=== PATIENT | female | born 1975 | race Caucasian/White ===

== ENCOUNTER → 2016-08-29 | Outpatient (CLI) | payer OTHER ==
--- NOTE | 2016-08-29 07:39 | MR ---
EXAMINATION TYPE: MR brain wo con DATE OF EXAM: 08/29/2016 6:30 AM COMPARISON: NONE HISTORY: 41-year-old female with dizziness TECHNIQUE: Multiplanar, multisequence images of the brain and brainstem were acquired without IV con trast. Diffusion weighted imaging is performed. FINDINGS: No evidence for acute infarction, hemorrhage, mass, mass effect, midline shift, herniation, effacemen t of basal cisterns, or extra-axial fluid collection. The ventricles and sulci are age-appropriate. Major intracranial flow voids are intact. T2/FLAIR weighted sequences show a solitary bright signal focus within the right frontal subcortical white matter, axial image 25. There is a 5 mm round T2 hyperintense lesion in the left paramedian pituitary gland. Otherwise, midli ne structures demonstrate normal morphology. There is minimal 2 mm of benign cerebellar tonsillar ec topia. Otherwise, the craniocervical junction is normal. Moderate mucosal thickening left maxillary sinus and mild within the ethmoid air cells. Globes are in tact. IMPRESSION: 1. No acute intracranial abnormality seen. 2. A solitary nonspecific 2 mm bright white matter focus in the right frontal lobe. Findings may refl ect very early changes of chronic small vessel ischemic disease. 3. Findings suggest a small 5 mm cyst of the pituitary gland. Correlate with clinical symptoms and la boratory assessment to exclude the less likely possibility of a tiny microadenoma. 4. Mild to moderat e chronic ethmoid and left maxillary sinus disease.
== END | disposition home or self-care (01) ==
LOC: RADMRIMAIN 05:58
PROVIDERS: ATTEND Family Medicine
DX: R90.89 Other abnormal findings on diagnostic imaging of central nervous system (principal)
CPT/HCPCS: 70551

== ENCOUNTER 2016-09-10 10:00 | Emergency (ER) | payer OTHER ==
[2016-09-10] MEDS ORDERED: MAG HYDROX/AL HYDROX/SIMETH 30 ML, HYOSCYAMINE ELIXIR 10 ML, CIMETIDINE HCL 300 MG PO STA ×3 (10:29)
--- NOTE | 2016-09-10 10:35 | ED ---
General Adult HPI - General Chief complaint: Abdominal Pain Stated complaint: Stomach pain Time Seen by Provider: 09/10/16 10:00 Source: patient, RN notes reviewed Mode of arrival: ambulatory Limitations: no limitations - History of Present Illness Initial comments: This is a 41-year-old female who presents to the emergency department complaining of severe heartburn. Patient states she's had heartburn for a week and a half. Patient states she has had it before but normally goes away and the day or 2. Patient states his been a week and a half of constant heartburn pain. Patient states she does see toms is a Tums appeared to help it but does not completely take it away. Patient states she has some cramping in her upper abdomen but there has been no nausea vomiting. Patient denies any diarrhea. Patient denies any recent fever or chills. Patient denies any difficulty breathing shortness of breath. Patient denies any diaphoresis. Patient denies any lightheadedness dizziness or near syncopal episode. Patient denies any numbness or weakness. Denies dysuria hematuria or urinary frequency. - Related Data Home Medications Medication Instructions Recorded Confirmed Levothyroxine Sodium [Synthroid] 75 mcg PO DAILY 09/10/16 09/10/16 Multivitamins, Thera [Multivitamin] 1 tab PO DAILY 09/10/16 09/10/16 Allergies Allergy/AdvReac Type Severity Reaction Status Date / Time ciprofloxacin [From Cipro] Allergy Unknown Verified 09/10/16 10:22 ciprofloxacin HCl Allergy Unknown Verified 09/10/16 10:22 [From Cipro] Review of Systems ROS Statement: Those systems with pertinent positive or pertinent negative responses have been documented in the HPI. ROS Other: All systems not noted in ROS Statement are negative. Past Medical History Past Medical History: No Reported History History of Any Multi-Drug Resistant Organisms: None Reported Additional Past Surgical History / Comment(s): implants Past Psychological History: No Psychological Hx Reported Smoking Status: Never smoker Past Alcohol Use History: None Reported Past Drug Use History: None Reported General Exam - General Exam Comments Initial Comments: GENERAL: Patient is well-developed and well-nourished. Patient is nontoxic and well- hydrated and is in mild distress. ENT: Neck is soft and supple. No significant lymphadenopathy is noted. Oropharynx is clear. Moist mucous membranes. Neck has full range of motion without eliciting any pain. EYES: The sclera were anicteric and conjunctiva were pink and moist. Extraocular movements were intact and pupils were equal round and reactive to light. Eyelids were unremarkable. PULMONARY: Unlabored respirations. Good breath sounds bilaterally. No audible rales rhonchi or wheezing was noted. CARDIOVASCULAR: There is a regular rate and rhythm without any murmurs gallops or rubs. ABDOMEN: Soft and nontender with normal bowel sounds. No palpable organomegaly was noted. There is no palpable pulsatile mass. SKIN: Skin is clear with no lesions or rashes and otherwise unremarkable. NEUROLOGIC: Patient is alert and oriented x3. Cranial nerves II through XII are grossly intact. Motor and sensory are also intact. Normal speech, volume and content. Symmetrical smile. MUSCULOSKELETAL: Normal extremities with adequate strength and full range of motion. LYMPHATICS: No significant lymphadenopathy is noted PSYCHIATRIC: Normal psychiatric evaluation. Limitations: no limitations Course Vital Signs 09/10/16 10:07 Temperature 97.3 F L Pulse Rate 60 Respiratory 17 Rate Blood Pressure 131/58 O2 Sat by Pulse 99 Oximetry Medical Decision Making - Medical Decision Making EKG shows sinus rhythm with frequent PVCs in a bigeminy pattern at 64 bpm MO interval 136 QRS is 86 QT interval 446 QTC is 460. Patient's old chart states that she has been in trigeminy and bigeminy before and has had stress tests that were normal. Patient got a GI cocktail and she stated that it completely removed her discomfort. - Lab Data Result diagrams: 09/10/16 10:25 09/10/16 10:25 Lab Results 09/10/16 09/10/16 09/10/16 Range/Units 10:25 10:25 10:25 WBC 6.1 (3.8-10.6) k/uL RBC 4.70 (3.80-5.40) m/uL Hgb 13.6 (11.4-16.0) gm/dL Hct 42.3 (34.0-46.0) % MCV 89.8 (80.0-100.0) fL MCH 28.9 (25.0-35.0) pg MCHC 32.2 (31.0-37.0) g/dL RDW 12.3 (11.5-15.5) % Plt Count 311 (150-450) k/uL Neutrophils % 59 % Lymphocytes % 28 % Monocytes % 7 % Eosinophils % 4 % Basophils % 0 % Neutrophils # 3.6 (1.3-7.7) k/uL Lymphocytes # 1.7 (1.0-4.8) k/uL Monocytes # 0.4 (0-1.0) k/uL Eosinophils # 0.2 (0-0.7) k/uL Basophils # 0.0 (0-0.2) k/uL Sodium 140 (137-145) mmol/L Potassium 4.1 (3.5-5.1) mmol/L Chloride 107 (98-107) mmol/L Carbon Dioxide 24 (22-30) mmol/L Anion Gap 9 mmol/L BUN 10 (7-17) mg/dL Creatinine 0.80 (0.52-1.04) mg/dL Est GFR (MDRD) Af Amer >60 (>60 ml/min/1.73 sqM) Est GFR (MDRD) Non-Af >60 (>60 ml/min/1.73 sqM) Glucose 98 (74-99) mg/dL Calcium 9.5 (8.4-10.2) mg/dL Total Bilirubin 1.4 H (0.2-1.3) mg/dL AST 24 (14-36) U/L ALT 34 (9-52) U/L Alkaline Phosphatase 52 (38-126) U/L Total Creatine Kinase 93 (30-135) U/L CK-MB (CK-2) 0.8 (0.0-2.4) ng/mL CK-MB (CK-2) Rel Index 0.9 Troponin I <0.012 (0.000-0.034) ng/mL Total Protein 7.4 (6.3-8.2) g/dL Albumin 4.2 (3.5-5.0) g/dL Amylase 35 (30-110) U/L Lipase 30 (23-300) U/L Disposition Clinical Impression: Gastroesophageal reflux Disposition: HOME SELF-CARE Condition: Good Instructions: Gastroesophageal Reflux Disease (ED) Additional Instructions: Patient should be taking Prilosec [id number] once a day. Patient should take Maalox or ULCER for acute exacerbations. Referrals: Edmund Seo III, MD [Primary Care Provider] - 1-2 days Time of Disposition: 11:32
[2016-09-10 10:44] LABS: Basophils % (A) 0 %; CH 29.5; Eosinophils # (A) 0.2 k/uL (0-0.7); Eosinophils % (A) 4 %; HCT 42.3 % (34.0-46.0); HDW 2.09; HGB 13.6 gm/dL (11.4-16.0); Luc # (Auto) 0.15; Luc % (Auto) 2; Lymphocytes # (A) 1.7 k/uL (1.0-4.8); Lymphocytes % (A) 28 %; MCH 28.9 pg (25.0-35.0); MCHC 32.2 g/dL (31.0-37.0); MCV 89.8 fL (80.0-100.0); Mean Platelet Volume 6.7; Monocytes # (A) 0.4 k/uL (0-1.0); Monocytes % (A) 7 %; Neutrophils # (A) 3.6 k/uL (1.3-7.7); Neutrophils % (A) 59 %; RDW 12.3 % (11.5-15.5); WBC 6.1 k/uL (3.8-10.6); WBC (Perox) 6.17
[2016-09-10 11:00] LABS: ALT 34 U/L (9-52); AST 24 U/L (14-36); Alkaline Phosphatase 52 U/L (38-126); Amylase 35 U/L (30-110); Anion Gap 9 mmol/L; Blood Urea Nitrogen 10 mg/dL (7-17); Calcium 9.5 mg/dL (8.4-10.2); Carbon Dioxide 24 mmol/L (22-30); Chloride 107 mmol/L (98-107); Glucose 98 mg/dL (74-99); Non-African American GFR(MDRD) >60 (>60 ml/min/1.73 sqM); Potassium 4.1 mmol/L (3.5-5.1); Sodium 140 mmol/L (137-145); Total Bilirubin 1.4 mg/dL (0.2-1.3); Total Protein 7.4 g/dL (6.3-8.2)
[2016-09-10 11:04] LABS: Creatine Kinase 93 U/L (30-135)
[2016-09-10 11:17] LABS: Creatine Kinase MB 0.8 ng/mL (0.0-2.4); Troponin I <0.012 ng/mL (0.000-0.034)
[2016-09-10 12:01] VITALS: BP 120/76; PULSE 62; RESP 20; TEMP 98.8
== END 2016-09-10 11:59 | disposition home or self-care (01) ==
LOC: EC 10:00
DX: K21.9 Gastro-esophageal reflux disease without esophagitis (principal); Z79.899 Other long term (current) drug therapy; Z88.1 Allergy status to other antibiotic agents
CPT/HCPCS: 36415; 80053; 82150; 82550; 82553; 83690; 84484; 85025; 93005; 99284

== ENCOUNTER → 2017-09-18 | Outpatient (CLI) | payer BC ==
--- NOTE | 2017-09-18 16:02 | XR ---
EXAMINATION TYPE: XR KUB DATE OF EXAM: 09/18/2017 COMPARISON: NONE HISTORY: Pain TECHNIQUE: Single supine KUB image of the abdomen is obtained FINDINGS: Small bowel demonstrates no evidence for dilatation or air fluid levels. Gas and fecal material is seen in non-distended colon. No convincing evidence for pneumoperitoneum. No unusual calcifications. The lung bases are clear. The osseous structures are intact. IUD appears to be in place. IMPRESSION: 1. Overall nonobstructive bowel gas pattern.
== END | disposition home or self-care (01) ==
LOC: RADXRMAIN 15:30
PROVIDERS: ATTEND Obstetrics & Gynecology
DX: T83.32XA Displacement of intrauterine contraceptive device, initial encounter (principal)
CPT/HCPCS: 74018

== ENCOUNTER → 2017-09-24 | Day surgery (SDC) | payer BC ==
[2017-09-19 11:24] VITALS: BMI 23.6
--- NOTE | 2017-09-23 17:07 | P.HPOB ---
History of Present Illness H&P Date: 09/23/17 Chief Complaint: Lost IUD strings 32-year-old presents for D&C hysteroscopy, possible diagnostic laparoscopy , laparoscopic tubal ligation. I placed a Mirena IUD earlier last week and the following day she had horrible cramping pain. An ultrasound showed the IUD to be inside of the uterus but was unable to visualize the strings were removed from the IUD. A flatplate of the abdomen showed that the Mirena was in place. Review of Systems All systems: negative Constitutional: Denies chills, Denies fever Eyes: denies blurred vision, denies pain Ears, nose, mouth and throat: Denies headache, Denies sore throat Cardiovascular: Denies chest pain, Denies shortness of breath Respiratory: Denies cough Gastrointestinal: Denies abdominal pain, Denies diarrhea, Denies nausea, Denies vomiting Genitourinary: Denies dysuria, Denies hematuria Musculoskeletal: Denies myalgias Integumentary: Denies pruritus, Denies rash Neurological: Denies numbness, Denies weakness Psychiatric: Denies anxiety, Denies depression Endocrine: Denies fatigue, Denies weight change Past Medical History Past Medical History: Blood Disorder, GERD/Reflux, Thyroid Disorder Additional Past Medical History / Comment(s): FACTOR V. IUD MISPLACED, CAUSING PAIN OCC. HASHIMOTOS. History of Any Multi-Drug Resistant Organisms: None Reported Past Surgical History: Breast Surgery Additional Past Surgical History / Comment(s): BREAST Implants X2. Past Anesthesia/Blood Transfusion Reactions: Previous Problems w/ Anesthesia, Postoperative Nausea & Vomiting (PONV) Smoking Status: Former smoker - Past Family History Sister(s) Family Medical History: Cancer Father Family Medical History: Blood Disorder Medications and Allergies Home Medications Medication Instructions Recorded Confirmed Type Levothyroxine Sodium [Synthroid] 75 mcg PO DAILY 09/10/16 09/19/17 History Multivitamins, Thera [Multivitamin] 1 tab PO DAILY 09/10/16 09/19/17 History 5-Hydroxytryptophan (5-Htp) [5-Htp 50 mg PO DAILY 09/19/17 09/19/17 History (Natrol)] Citicoline Sodium [Cerenx] 250 mg PO DAILY 09/19/17 09/19/17 History Lansoprazole [Prevacid] 30 mg PO DAILY PRN 09/19/17 09/19/17 History Levonorgestrel [Mirena] 1 implant VAGINAL [id number] 09/19/17 09/19/17 History Tyrosine [l-Tyrosine] 500 mg PO DAILY 09/19/17 09/19/17 History traMADol HCL [Ultram] 50 mg PO Q6HR PRN 09/19/17 09/19/17 History Allergies Allergy/AdvReac Type Severity Reaction Status Date / Time ciprofloxacin [From Cipro] Allergy Itching Verified 09/19/17 10:52 ciprofloxacin HCl Allergy Itching, Verified 09/19/17 10:52 [From Cipro] redness Exam Osteopathic Statement: *. No significant issues noted on an osteopathic structural exam other than those noted in the History and Physical/Consult. Heart: Regular rate and rhythm Lungs: Clear to auscultation bilaterally Abdomen: Soft, nontender Extremities: Negative Homans sign Assessment and Plan (1) IUD strings lost Status: Acute Code(s): T83.32XA - DISPLACEMENT OF INTRAUTERINE CONTRACEPTIVE DEVICE, INIT SNOMED Code(s): 435112788 (2) Family planning Status: Acute Code(s): Z30.09 - ENCOUNTER FOR OTH GENERAL CNSL AND ADVICE ON CONTRACEPTION SNOMED Code(s): 232333568 Plan: 1. D&C hysteroscopy, removal of IUD, possible diagnostic laparoscopy, laparoscopic tubal ligation.
[~2017-09-24] MED LIST: DEXAMETHASONE SOD PHOSPHATE 10 MG/ML 1 ML VIAL IV ONE; GLYCOPYRROLATE 0.2 MG/ML 2 ML VIAL ONE; KETOROLAC 30 MG/ML 1 ML VIAL ONE; LACTATED RINGERS 1,000 ML IV ONE; LACTATED RINGERS 1,000 ML IV SCH; LIDOCAINE 1% 20 ML VIAL (10MG/ML) FOR IV START INTRADERMA PRN; LIDOCAINE 1% INJ 10MG/ML (20 ML MDV) ONE; MIDAZOLAM 2 MG/2 ML VIAL ONE; NEOSTIGMINE 1 MG/ML 10 ML VIAL ONE; ONDANSETRON 4 MG/2 ML VIAL IVP ONE; PROPOFOL 10 MG/ML 20 ML VIAL IV ONE; Pre Op ABX Message 1 EACH MISC MISCELLANE ONE; ROCURONIUM BROMIDE 10 MG/ML 10 ML VIAL IV ONE; SCOPOLAMINE 1.5MG/72HR PATCH TRANSDERM ONE; SUCCINYLCHOLINE CHLORIDE 100 MG/5 ML SYR IV ONE
[2017-09-24] MEDS: HYDROmorphone 0.5 MG/0.5 ML SYRINGE IVP PRN ×2 (09:40→10:19)
[2017-09-24 09:49] VITALS: TEMP 97.2
[2017-09-24 10:48] VITALS: RESP 18
[2017-09-24 11:09] VITALS: BP 114/68; PULSE 90
--- NOTE | 2017-09-24 17:14 | P.OP ---
Date of Procedure: 09/24/17 Preoperative Diagnosis: 1. lost IUD strings Postoperative Diagnosis: 1. lost IUD strings Procedure(s) Performed: dilation hysteroscopy, laparoscopy with removal of IUD Anesthesia: RUFINO Surgeon: Mia Saul Estimated Blood Loss (ml): 30 Urine output (ml): 20 Pathology: none sent Condition: stable Disposition: PACU Operative Findings: perforation in the fundus of the uterus, IUD found in the pelvis, posterior to the uterus. Normal uterus, tubes and ovaries Description of Procedure: Patient is taken the operating room where general anesthesia was obtained without difficulty. She was prepped and draped in normal sterile fashion dorsal lithotomy position, legs placed in the Rik stirrups. Bladder was drained of all urine. Weighted speculum place in vagina and the anterior lip of cervix grasped with single-tooth tenaculum. The cervix was dilated to #7 Hegar dilator. Hysteroscopy was then performed and immediately it was observed that there was a perforation in the fundus of the uterus. Still did look along the anterior-posterior and bilateral areas to attempt to find the intrauterine device. It was not seen inside of the uterus. I placed the kroner manipulator. Attention was then turned to the abdomen and gloves were changed. A 10 mm infraumbilical incision was made with scalpel and a 10 mm optical trocar was placed under direct visualization. 5 mm incision was made suprapubically and a 5 mm trocar was placed under direct visualization. The uterus was anteverted and the bowels were started to be swept away when the strings of the IUD were seen. A grasper was used to hold onto the strings and the IUD was pulled through the 5 mm trocar. The area of perforation appeared to have some light bleeding going on so ball tip cautery was used to cauterize this area. Hemostasis was achieved. The suction psychological assistant was used to suction the fluid from the pelvis. All instruments were then removed from the abdomen and vagina. The 10 mm incision was closed with 0 Vicryl in a fascial layer and 4-0 Vicryl subcuticular fashion the 5 mm incision was closed with 4-0 Vicryl subcuticular fashion patient tolerated the procedure well, sponge and instrument counts are correct 2 and she was taken to recovery room in stable condition.
== END ==
LOC: OR 07:00
PROVIDERS: ATTEND Obstetrics & Gynecology
DX: T83.32XA Displacement of intrauterine contraceptive device, initial encounter (principal); S37.69XA Other injury of uterus, initial encounter; X58.XXXA Exposure to other specified factors, initial encounter; K21.9 Gastro-esophageal reflux disease without esophagitis; E07.9 Disorder of thyroid, unspecified; D68.51 Activated protein C resistance; E06.3 Autoimmune thyroiditis; Z88.3 Allergy status to other anti-infective agents; Z79.890 Hormone replacement therapy; Z79.899 Other long term (current) drug therapy; Z87.891 Personal history of nicotine dependence
CPT/HCPCS: 58555; 49329; 81025; J2250; J1100; J2710; J2405; J2001; J1885; J0330; J2704; J1170

== ENCOUNTER → 2018-07-29 | Outpatient (CLI) | payer BC ==
[2018-07-29 13:03] LABS: Basophils % (A) 1 %; Eosinophils # (A) 0.1 k/uL (0-0.7); Eosinophils % (A) 2 %; HGB 12.8 gm/dL (11.4-16.0); Lymphocytes # (A) 1.7 k/uL (1.0-4.8); Lymphocytes % (A) 26 %; MCHC 31.3 g/dL (31.0-37.0); MCV 92.6 fL (80.0-100.0); Mean Platelet Volume 6.8; Monocytes # (A) 0.3 k/uL (0-1.0); Monocytes % (A) 4 %; Neutrophils # (A) 4.2 k/uL (1.3-7.7); Neutrophils % (A) 65 %; Platelet Count 377 k/uL (150-450); RBC 4.43 m/uL (3.80-5.40); RDW 12.4 % (11.5-15.5); WBC 6.5 k/uL (3.8-10.6)
[2018-07-29 16:00] LABS: Erythrocyte Sedimentation Rate 2 mm/hr (0-20)
[2018-07-29 18:14] LABS: Rheumatoid Factor 9 IU/mL (0-15)
[2018-07-30 09:53] LABS: HLA B27 NEGATIVE
== END ==
LOC: LABWHC1 11:37
PROVIDERS: ATTEND Orthopaedic Surgery
DX: M25.50 Pain in unspecified joint (principal)
CPT/HCPCS: 36415; 85025; 85652; 86038; 86140; 86431; 86812

== ENCOUNTER 2018-09-18 12:47 | Emergency (ER) | payer BC ==
[2018-09-18 12:59] VITALS: RESP 18; TEMP 98
[2018-09-18 13:37] LABS: Basophils % (A) 0 %; Eosinophils # (A) 0.1 k/uL (0-0.7); Eosinophils % (A) 1 %; HCT 39.1 % (34.0-46.0); HGB 12.7 gm/dL (11.4-16.0); Lymphocytes # (A) 1.5 k/uL (1.0-4.8); Lymphocytes % (A) 25 %; MCHC 32.5 g/dL (31.0-37.0); MCV 92.3 fL (80.0-100.0); Monocytes # (A) 0.3 k/uL (0-1.0); Monocytes % (A) 5 %; Neutrophils # (A) 4.2 k/uL (1.3-7.7); Neutrophils % (A) 67 %; Platelet Count 338 k/uL (150-450); RBC 4.23 m/uL (3.80-5.40); RDW 12.4 % (11.5-15.5); WBC 6.2 k/uL (3.8-10.6)
[2018-09-18 13:51] LABS: D-Dimer 0.23 mg/L FEU (<0.60); Partial Thromboplastin Time 25.2 sec (22.0-30.0)
[2018-09-18 13:52] LABS: ALT 32 U/L (9-52); AST 26 U/L (14-36); Albumin 4.5 g/dL (3.5-5.0); Alkaline Phosphatase 50 U/L (38-126); Anion Gap 9 mmol/L; Blood Urea Nitrogen 11 mg/dL (7-17); Calcium 9.4 mg/dL (8.4-10.2); Carbon Dioxide 21 mmol/L (22-30); Chloride 107 mmol/L (98-107); Glucose 98 mg/dL (74-99); Magnesium 1.7 mg/dL (1.6-2.3); Potassium 4.3 mmol/L (3.5-5.1); Sodium 137 mmol/L (137-145); Total Protein 7.7 g/dL (6.3-8.2)
[2018-09-18 14:02] LABS: Creatine Kinase 104 U/L (30-135)
--- NOTE | 2018-09-18 14:12 | XR ---
EXAMINATION TYPE: XR chest 2V DATE OF EXAM: 09/18/2018 COMPARISON: None INDICATION: Chest pain abnormal EKG TECHNIQUE: Frontal and lateral views of the chest are obtained. FINDINGS: The heart size is normal. The pulmonary vasculature is normal. The lungs are clear. IMPRESSION: 1. No acute pulmonary process.
[2018-09-18 14:17] LABS: Creatine Kinase MB 0.6 ng/mL (0.0-2.4); Troponin I <0.012 ng/mL (0.000-0.034)
[2018-09-18] MEDS ORDERED: MAGNESIUM SULFATE-D5W PMX 1 GM in DEXTROSE/WATER 1 100ML.BAG IVPB ONE (15:05)
--- NOTE | 2018-09-18 15:07 | ED ---
Chest Pain HPI - General Chief Complaint: Chest Pain Stated Complaint: chest pain Time Seen by Provider: 09/18/18 13:03 Source: patient, EMS, RN notes reviewed Mode of arrival: EMS Limitations: no limitations - History of Present Illness Initial Comments: This is a 43-year-old female who was brought in by EMS from a local outpatient clinic with complaints of chest pain and some arrhythmia. He states he been having some anterior chest pain for past 3 days she did notice some palpitations. Some shortness of breath has had no fevers chills or sweats. The pain was 4-5/10 in severity sharp in nature. She has no prior history of heart disease she is a history of hypothyroidism and is on medication. She is nonsmoker. No history of PE or DVT. There is a family history of heart disease. MD Complaint: chest pain, other - Related Data Home Medications Medication Instructions Recorded Confirmed Levothyroxine Sodium [Synthroid] 75 mcg PO DAILY 09/10/16 09/18/18 Multivitamins, Thera [Multivitamin] 1 tab PO DAILY 09/10/16 09/18/18 Previous Rx's Medication Instructions Recorded Ibuprofen 800 mg PO Q6HR PRN #20 tablet 09/18/18 Magnesium 200 mg PO DAILY #10 tablet 09/18/18 Allergies Allergy/AdvReac Type Severity Reaction Status Date / Time ciprofloxacin [From Cipro] Allergy Itching Verified 09/18/18 13:26 ciprofloxacin HCl Allergy Itching, Verified 09/18/18 13:26 [From Cipro] redness Review of Systems ROS Statement: Those systems with pertinent positive or pertinent negative responses have been documented in the HPI. ROS Other: All systems not noted in ROS Statement are negative. EKG Findings - EKG Results: EKG: interpreted by ERMD, sinus rhythm (Sinus rhythm rate of 68 [place] interval 138 QRS duration 70 QT since QTC 420/446 low-voltage QRS nonspecific inferior changes he's or PACs seen on this tracing) Past Medical History Past Medical History: Blood Disorder, GERD/Reflux, Thyroid Disorder Additional Past Medical History / Comment(s): FACTOR V. IUD MISPLACED, CAUSING PAIN OCC. HASHIMOTOS. History of Any Multi-Drug Resistant Organisms: None Reported Past Surgical History: Breast Surgery Additional Past Surgical History / Comment(s): BREAST Implants X2. Past Anesthesia/Blood Transfusion Reactions: Previous Problems w/ Anesthesia, Postoperative Nausea & Vomiting (PONV) Past Psychological History: Anxiety Smoking Status: Former smoker Past Alcohol Use History: Occasional - Past Family History Sister(s) Family Medical History: Cancer Father Family Medical History: Blood Disorder General Exam - General Exam Comments Initial Comments: This is a well-developed well-nourished awake alert oriented 3 female Limitations: no limitations General appearance: alert, anxious Head exam: Present: atraumatic, normocephalic, normal inspection Eye exam: Present: normal appearance, PERRL, EOMI. Absent: scleral icterus, conjunctival injection, periorbital swelling ENT exam: Present: normal exam, mucous membranes moist Neck exam: Present: normal inspection. Absent: tenderness, meningismus, lymphadenopathy Respiratory exam: Present: normal lung sounds bilaterally, chest wall tenderness (Cusmano test palpation along the anterior costal sternal margins). Absent: respiratory distress, wheezes, rales, rhonchi, stridor Cardiovascular Exam: Present: regular rate, normal rhythm, normal heart sounds. Absent: systolic murmur, diastolic murmur, rubs, gallop, clicks GI/Abdominal exam: Present: soft, normal bowel sounds. Absent: distended, tenderness, guarding, rebound, rigid Extremities exam: Present: normal inspection, full ROM, normal capillary refill. Absent: tenderness, pedal edema, joint swelling, calf tenderness Back exam: Present: normal inspection Neurological exam: Present: alert, oriented X3, CN II-XII intact Psychiatric exam: Present: normal affect, normal mood Skin exam: Present: warm, dry, intact, normal color. Absent: rash Course Vital Signs 09/18/18 09/18/18 09/18/18 12:57 14:28 15:33 Temperature 98 F Pulse Rate 74 55 L 60 Respiratory 18 18 18 Rate Blood Pressure 128/86 106/75 127/72 O2 Sat by Pulse 98 100 100 Oximetry - Reevaluation(s) Reevaluation #1: 09/18/18 15:09 I did review the EKG tracing submitted by EMS which showed sinus rhythm no arrhythmias seen the EKG submitted from the office showed evidence of a bigeminal rhythm. Chest Pain MDM - MDM I did review the imaging and report no acute findings. Patient was reevaluated several occasions she feels much improved after IV magnesium. Patient will be discharged home with her doctor. Supplementation magnesium is suggested. The chest pain is consistent with costochondritic etiology. No further evidence of Disposition Clinical Impression: Costalchondritis, Chest wall syndrome, PVCs (premature ventricular contractions ) Disposition: HOME SELF-CARE Condition: Good Instructions (If sedation given, give patient instructions): Costochondritis ( ED), Hypomagnesemia (ED) Prescriptions: Ibuprofen 800 mg PO Q6HR PRN #20 tablet PRN Reason: Pain Magnesium 200 mg PO DAILY #10 tablet Is patient prescribed a controlled substance at d/c from ED?: No Referrals: Edmund Seo III, MD [Primary Care Provider] - 1-2 days
[2018-09-18 17:09] VITALS: BP 98/84; PULSE 68
== END 2018-09-18 17:08 | disposition home or self-care (01) ==
LOC: EC 12:47
DX: M94.0 Chondrocostal junction syndrome [Tietze] (principal); I49.3 Ventricular premature depolarization; E06.3 Autoimmune thyroiditis; Z87.891 Personal history of nicotine dependence; Z79.890 Hormone replacement therapy; Z88.1 Allergy status to other antibiotic agents
CPT/HCPCS: 36415; 93005; 85379; 83880; 80053; 84443; 82550; 82553; 83735; 84484; 85025; 85610; 85730; 71046; 99285; 96365; J3475

== ENCOUNTER → 2018-10-19 | Outpatient (CLI) | payer BC | LOC: LABWHC1 09:36 | PROVIDERS: ATTEND Obstetrics & Gynecology | DX: N92.6 Irregular menstruation, unspecified (principal) | CPT/HCPCS: 36415; 84702 ==

== ENCOUNTER → 2018-12-02 | Outpatient (CLI) | payer BC ==
--- NOTE | 2018-12-02 14:20 | US ---
EXAMINATION TYPE: US pelvis complete transvag DATE OF EXAM: 12/02/2018 COMPARISON: NONE CLINICAL HISTORY: N92.0 Menorrhagia; Z97.[address] Menorrhagia. Vaginal bleeding x 6 weeks. Kyl eena IUD in place. Pelvic pain x 1 month. . TECHNIQUE: Transvaginal (TV) and Transabdominal (TA) . Transabdominal sonographic images of the pel vis were acquired. Transvaginal sonographic images were medically necessary to better assess the fol lowing anatomy: IUD placement. Date of LMP: 11/07/2018 EXAM MEASUREMENTS: Uterus: 8.1 x 5.6 x 3.8 cm Endometrial Stripe: 0.44 cm Right Ovary: 2.7 x 1.2 x 1.0 cm Left Ovary: 3.0 x 3.7 x 1.8 cm 1. Uterus: IUD appears to be in place in the fundus of the uterus. Anteverted. 2. Endometrium: appears wnl 3. Right Ovary: appears wnl 4. Left Ovary: anechoic area seen measurin.9 x 1.4 x 1.2 cm. 5. Bilateral Adnexa: appears wnl 6. Posterior cul-de-sac: minimal amount of fluid seen measurin.8 x 0.7 x 0.3 cm. IMPRESSION: 1. IUD is noted to be in place. 2. Cyst left ovary.
== END | disposition home or self-care (01) ==
LOC: RADUSWWP 13:17
PROVIDERS: ATTEND Obstetrics & Gynecology
DX: N83.202 Unspecified ovarian cyst, left side (principal); N92.0 Excessive and frequent menstruation with regular cycle; Z97.5 Presence of (intrauterine) contraceptive device
CPT/HCPCS: 76830; 76856

== ENCOUNTER → 2019-06-16 | Outpatient (CLI) | payer BC | END | disposition home or self-care (01) | LOC: RADECHMAIN 12:01 | PROVIDERS: ATTEND Family Medicine | DX: I47.1 Supraventricular tachycardia (principal); R00.1 Bradycardia, unspecified | CPT/HCPCS: 93225; 93226 ==

== ENCOUNTER → 2020-02-16 | Outpatient (CLI) | payer BC ==
--- NOTE | 2020-02-16 12:16 | US ---
EXAMINATION TYPE: US abd limited kidneys/bladder DATE OF EXAM: 02/16/2020 COMPARISON: NONE CLINICAL HISTORY: N32.89 other specified disorders of bladder. EXAM MEASUREMENTS: Liver Length: 12.7 cm Gallbladder Wall: cm CBD: 0.6 cm Right Kidney: 11.3 x 3.9 x 4.5cm cm Left Kidney: 10.4 x 4.8 x 4.5 cm Post Void Volume: 28.0 Pancreas: wnl Liver: wnl Gallbladder: wnl CBD: wnl Right Kidney: echogenic foci, ? stone, measuring 0.2 x 0.1 x 0.2cm Left Kidney: cyst measuring 2.8 x 2.7 x 3.2cm Bladder: wnl Bilateral Jets Seen Yes Normal Post Void Residual (normal less than 50ml) yes IMPRESSION: 1. Nonobstructive nephrolithiasis. 2. Simple cyst left kidney.
== END | disposition home or self-care (01) ==
LOC: RADUSWWP 10:50
PROVIDERS: ATTEND Family Medicine
DX: N20.0 Calculus of kidney (principal); N28.1 Cyst of kidney, acquired
CPT/HCPCS: 76705; 76770

== ENCOUNTER → 2020-06-27 | Outpatient (CLI) | payer BC ==
--- NOTE | 2020-06-27 09:29 | XR ---
EXAMINATION TYPE: XR lumbar spine 2 or 3V DATE OF EXAM: 06/27/2020 CLINICAL HISTORY: pain TECHNIQUE: Three views of the lumbar spine are submitted. COMPARISON: None. FINDINGS: There are 5 lumbar type vertebral bodies identified. The lumbar spine shows satisfactory alignment w ithout evidence of acute fracture or dislocation. Vertebral body heights are within normal limits. Mild scattered degenerative disc space narrowing. The overlying soft tissue appears unremarkable. IMPRESSION: No acute fracture or dislocation is seen in the lumbar spine. ICD 10 NO FRACTURE, INITIAL EVALUATION
--- NOTE | 2020-06-27 12:31 | US ---
EXAMINATION TYPE: US axilla RT DATE OF EXAM: 06/27/2020 COMPARISON: NONE CLINICAL HISTORY: 45-year-old female R22.9 Localized swelling, mass and lump, unspecified. TECHNIQUE: Targeted ultrasound examination along the patient's palpable site in the right axilla. FINDINGS: At the patient's palpable areas are several lymph nodes with normal measurements up to 1.3 x 0.6 cm a nd 1.1 x 0.5 cm. No abnormal lymph node cortical thickening. IMPRESSION: A few prominent but nonenlarged right axillary lymph nodes in the right axilla. Clinical follow-up ca n be performed for any palpable area. The area can be rescanned if any enlarging abnormality is ident ified.
== END | disposition home or self-care (01) ==
LOC: RADUSWWP 07:39
PROVIDERS: ATTEND Family Medicine
DX: R22.9 Localized swelling, mass and lump, unspecified (principal)
CPT/HCPCS: 72100

== ENCOUNTER → 2020-07-14 | Outpatient (CLI) | payer BC ==
--- NOTE | 2020-07-14 15:57 | US ---
EXAMINATION TYPE: US kidneys/renal and bladder DATE OF EXAM: 07/14/2020 COMPARISON: 02/16/2020 CLINICAL HISTORY: R30.0 Dysuria. Frequent urination, known left cyst EXAM MEASUREMENTS: Right Kidney: 10.2 x 4.1 x 4.3 cm Left Kidney: 10.9 x 3.7 x 4.7 cm Right Kidney: No hydronephrosis or masses seen Left Kidney: 3.4cm cyst seen, previous was 3.2cm Bladder: wnl Bilateral Jets seen: wnl IMPRESSION: 1. Left renal cyst
== END | disposition home or self-care (01) ==
LOC: RADUSWWP 12:52
PROVIDERS: ATTEND Family Medicine
DX: N28.1 Cyst of kidney, acquired (principal)
CPT/HCPCS: 76770

== ENCOUNTER 2020-11-24 01:57 | Emergency (ER) | payer BC ==
[2020-11-24 02:08] VITALS: TEMP 98.1
[2020-11-24] MEDS ORDERED: SODIUM CHLORIDE 0.9% 1,000 ML IV STA (02:19)
[2020-11-24 02:33] LABS: Basophils % (A) 0 %; Eosinophils # (A) 0.1 k/uL (0-0.7); Eosinophils % (A) 1 %; HGB 13.2 gm/dL (11.4-16.0); Lymphocytes # (A) 0.8 k/uL (1.0-4.8); Lymphocytes % (A) 6 %; MCHC 31.5 g/dL (31.0-37.0); MCV 92.2 fL (80.0-100.0); Mean Platelet Volume 7.1; Monocytes # (A) 0.4 k/uL (0-1.0); Monocytes % (A) 3 %; Neutrophils # (A) 12.4 k/uL (1.3-7.7); Neutrophils % (A) 90 %; Platelet Count 343 k/uL (150-450); RBC 4.55 m/uL (3.80-5.40); WBC 13.8 k/uL (3.8-10.6)
--- NOTE | 2020-11-24 02:39 | ED ---
General Adult HPI - General Chief complaint: Fall Stated complaint: Syncope Time Seen by Provider: 11/24/20 02:09 Source: patient, RN notes reviewed Mode of arrival: wheelchair Limitations: no limitations - History of Present Illness Initial comments: 45-year-old white female patient, alert and oriented 4, presents to the emergency room with complaints of syncopal episode in the bathroom less than an hour prior to arrival. Patient states received her second Covid vaccine yesterday, and tonight was awoken from her sleep with nausea. Patient states went to the bathroom and vomited and return back to bed at some point in the night woke up again with back to the bathroom and was sitting on the toilet nauseated with dry heaves. When she got up to return to bed, she passed out hitting her head. Patient does not know what she hit her head on, states the next thing she remembered was her son standing over her. Son at bedside states that he believes she had her head on the bed frame. Patient states she had an episode of lightheadedness last week lasting about 10 minutes, which resolved after sitting down. Patient has a history of hypothyroidism, factor V leiden , Austyn's and GERD. Patient denies nausea at this time, does complain of a 6 or 7 out of 10 headache. Patient has an abrasion to her right shoulder sustained in the fall tonight. Patient denies any other injuries. -: hour(s) - Related Data Home Medications Medication Instructions Recorded Confirmed Levothyroxine Sodium [Synthroid] 75 mcg PO DAILY 09/10/16 09/18/18 Multivitamins, Thera [Multivitamin] 1 tab PO DAILY 09/10/16 09/18/18 Previous Rx's Medication Instructions Recorded Ibuprofen 800 mg PO Q6HR PRN #20 tablet 09/18/18 Magnesium 200 mg PO DAILY #10 tablet 09/18/18 Allergies Allergy/AdvReac Type Severity Reaction Status Date / Time ciprofloxacin [From Cipro] Allergy Itching Verified 11/24/20 02:08 ciprofloxacin HCl Allergy Itching, Verified 11/24/20 02:08 [From Cipro] redness Review of Systems ROS Statement: Those systems with pertinent positive or pertinent negative responses have been documented in the HPI. ROS Other: All systems not noted in ROS Statement are negative. Past Medical History Past Medical History: Blood Disorder, GERD/Reflux, Thyroid Disorder Additional Past Medical History / Comment(s): FACTOR V. IUD MISPLACED, CAUSING PAIN OCC. HASHIMOTOS. History of Any Multi-Drug Resistant Organisms: None Reported Past Surgical History: Breast Surgery Additional Past Surgical History / Comment(s): BREAST Implants X2. Past Anesthesia/Blood Transfusion Reactions: Previous Problems w/ Anesthesia, Postoperative Nausea & Vomiting (PONV) Past Psychological History: Anxiety Smoking Status: Never smoker Past Alcohol Use History: Occasional Past Drug Use History: None Reported - Past Family History Sister(s) Family Medical History: Cancer Father Family Medical History: Blood Disorder General Exam Limitations: no limitations General appearance: alert, in no apparent distress Head exam: Present: other (laceration noted above and through right eyebrow approx. 2cm) Eye exam: Present: normal appearance, PERRL, EOMI. Absent: scleral icterus, conjunctival injection, nystagmus, periorbital swelling, periorbital tenderness Pupils: Present: normal accommodation ENT exam: Present: normal exam, normal oropharynx, mucous membranes moist Neck exam: Present: normal inspection, full ROM. Absent: tenderness, meningismus, lymphadenopathy, thyromegaly Respiratory exam: Present: normal lung sounds bilaterally. Absent: respiratory distress, wheezes, rales, rhonchi, stridor, decreased breath sounds Cardiovascular Exam: Present: regular rate, normal heart sounds. Absent: JVD GI/Abdominal exam: Present: soft, normal bowel sounds. Absent: distended, tenderness, guarding, rebound, rigid Extremities exam: Present: normal inspection, full ROM, normal capillary refill. Absent: tenderness, pedal edema, joint swelling, calf tenderness Back exam: Present: normal inspection. Absent: tenderness, CVA tenderness (R), CVA tenderness (L) Neurological exam: Present: alert, oriented X3, CN II-XII intact Psychiatric exam: Present: normal affect, normal mood Skin exam: Present: warm, dry, intact, normal color, abrasion (abrasion to right shoulder, laceration over right eyebrow). Absent: rash, cyanosis, diaphoretic, erythema, petechiae, pallor, mottled Course Vital Signs 11/24/20 11/24/20 11/24/20 02:05 02:19 02:49 Temperature 98.1 F Pulse Rate 50 L 64 80 Respiratory 16 20 20 Rate Blood Pressure 52/31 101/60 110/68 O2 Sat by Pulse 97 98 97 Oximetry 11/24/20 03:08 Temperature Pulse Rate 84 Respiratory 20 Rate Blood Pressure 113/73 O2 Sat by Pulse 100 Oximetry EKG Findings - EKG Results: EKG: sinus rhythm (Ventricular rate is 64, CA interval 0.154, QRS 0.86, QTC 0.433, normal sinus rhythm), not changed from: (09/18/2018) Procedures - Laceration Laceration #1 Site: face (above right eye) Size (cm): 2 Description: irregular Depth: simple, single layer Anesthetic Used: lidocaine 1% Anesthesia Technique: local infiltration Pre-repair: irrigated extensively (70ml saline) Type of Sutures: nylon Size of Sutures: 6-0 Number of Sutures: 5 Technique: simple, interrupted Patient Tolerated Procedure: well Medical Decision Making - Medical Decision Making Patient's glucose is 125, white blood cell count is 13.8 with 12.4 neutrophil count. Troponin 0.012. Hemoglobin and hematocrit 13.2 and 42.0 respectively. EKG shows sinus rhythm with a ventricular rate is 64, no acute changes compared to September 18, 2018 EKG. chest x-ray within normal limits, no fractures, infiltrates or effusions. CT of the brain shows no mass, no edema, no hemorrhage. Right soft tissue defect noted in the area of the laceration above right eye. D-dimer 0.42. 5 sutures placed to close facial laceration using 6-0 nylon and Steri-Strips. Blood pressure and heart rate within normal limits, patient without complaints of nausea. Denies vision changes. This is likely related to vasovagal episode as patient was dry heaving on the toilet when she stood up suddenly to walk into the patch min had episode. On arrival to the e mergency room patient's blood pressure and heart rate was low which is now resolved shooting pain in the 80s and systolic blood pressure 108. Case discussed with Dr. Ramires who is agreeable with my plan to discharge patient have her follow-up with her primary care doctor in 1 week. Sutures to be removed in 5-7 days patient tetanus updated. - Lab Data Result diagrams: 11/24/20 02:25 11/24/20 02:25 Lab Results 11/24/20 11/24/20 11/24/20 Range/Units 02:25 02:25 02:25 WBC 13.8 H (3.8-10.6) k/uL RBC 4.55 (3.80-5.40) m/uL Hgb 13.2 (11.4-16.0) gm/dL Hct 42.0 (34.0-46.0) % MCV 92.2 (80.0-100.0) fL MCH 29.0 (25.0-35.0) pg MCHC 31.5 (31.0-37.0) g/dL RDW 13.0 (11.5-15.5) % Plt Count 343 (150-450) k/uL MPV 7.1 Neutrophils % 90 % Lymphocytes % 6 % Monocytes % 3 % Eosinophils % 1 % Basophils % 0 % Neutrophils # 12.4 H (1.3-7.7) k/uL Lymphocytes # 0.8 L (1.0-4.8) k/uL Monocytes # 0.4 (0-1.0) k/uL Eosinophils # 0.1 (0-0.7) k/uL Basophils # 0.0 (0-0.2) k/uL PT 10.6 (9.0-12.0) sec INR 1.0 (<1.2) APTT 21.2 L (22.0-30.0) sec D-Dimer 0.42 (<0.60) mg/L FEU Sodium 136 L (137-145) mmol/L Potassium 4.4 (3.5-5.1) mmol/L Chloride 104 (98-107) mmol/L Carbon Dioxide 22 (22-30) mmol/L Anion Gap 10 mmol/L BUN 13 (7-17) mg/dL Creatinine 0.90 (0.52-1.04) mg/dL Est GFR (CKD-EPI)AfAm 89 (>60 ml/min/1.73 sqM) Est GFR (CKD-EPI)NonAf 77 (>60 ml/min/1.73 sqM) Glucose 125 H (74-99) mg/dL Calcium 9.5 (8.4-10.2) mg/dL Magnesium 1.6 (1.6-2.3) mg/dL Total Bilirubin 0.7 (0.2-1.3) mg/dL AST 27 (14-36) U/L ALT 17 (4-34) U/L Alkaline Phosphatase 64 (38-126) U/L Troponin I (0.000-0.034) ng/mL Total Protein 8.0 (6.3-8.2) g/dL Albumin 4.8 (3.5-5.0) g/dL 11/24/20 Range/Units 02:25 WBC (3.8-10.6) k/uL RBC (3.80-5.40) m/uL Hgb (11.4-16.0) gm/dL Hct (34.0-46.0) % MCV (80.0-100.0) fL MCH (25.0-35.0) pg MCHC (31.0-37.0) g/dL RDW (11.5-15.5) % Plt Count (150-450) k/uL MPV Neutrophils % % Lymphocytes % % Monocytes % % Eosinophils % % Basophils % % Neutrophils # (1.3-7.7) k/uL Lymphocytes # (1.0-4.8) k/uL Monocytes # (0-1.0) k/uL Eosinophils # (0-0.7) k/uL Basophils # (0-0.2) k/uL PT (9.0-12.0) sec INR (<1.2) APTT (22.0-30.0) sec D-Dimer (<0.60) mg/L FEU Sodium (137-145) mmol/L Potassium (3.5-5.1) mmol/L Chloride (98-107) mmol/L Carbon Dioxide (22-30) mmol/L Anion Gap mmol/L BUN (7-17) mg/dL Creatinine (0.52-1.04) mg/dL Est GFR (CKD-EPI)AfAm (>60 ml/min/1.73 sqM) Est GFR (CKD-EPI)NonAf (>60 ml/min/1.73 sqM) Glucose (74-99) mg/dL Calcium (8.4-10.2) mg/dL Magnesium (1.6-2.3) mg/dL Total Bilirubin (0.2-1.3) mg/dL AST (14-36) U/L ALT (4-34) U/L Alkaline Phosphatase (38-126) U/L Troponin I <0.012 (0.000-0.034) ng/mL Total Protein (6.3-8.2) g/dL Albumin (3.5-5.0) g/dL Disposition Clinical Impression: Vaso-vagal reaction, Fall Disposition: HOME SELF-CARE Condition: Good Instructions (If sedation given, give patient instructions): Care For Your Stitches (ED), Syncope (ED), Concussion (ED) Additional Instructions: Follow-up with the primary care doctor in 1 week, sutures to be removed in 5-7 days. Use Neosporin or bacitracin twice a day to site and return if signs and symptoms of infection, including fever or drainage. Is patient prescribed a controlled substance at d/c from ED?: No Referrals: Edmund Seo III, MD [Primary Care Provider] - 1-2 days Time of Disposition: 03:56
[2020-11-24 02:41] LABS: Albumin 4.8 g/dL (3.5-5.0); Calcium 9.5 mg/dL (8.4-10.2); Magnesium 1.6 mg/dL (1.6-2.3); Potassium 4.4 mmol/L (3.5-5.1); Total Bilirubin 0.7 mg/dL (0.2-1.3)
[2020-11-24] MEDS ORDERED: LIDOCAINE 1% INJ 10MG/ML (20 ML MDV) SQ ONE (02:45)
--- NOTE | 2020-11-24 02:47 | CT ---
EXAM: CT Head Without Intravenous Contrast CLINICAL HISTORY: ITS.REASON CT Reason: fall TECHNIQUE: Axial computed tomography images of the head/brain without intravenous contrast. CTDI is 49.27 mGy and DLP is 1172.4 mGy-cm. This CT exam was performed using one or more of the following dose reduction techniques: automated exposure control, adjustment of the mA and/or kV according to patient size, and/or use of iterative reconstruction technique. COMPARISON: No relevant prior studies available. FINDINGS: Brain: No acute infarct, hemorrhage, mass or edema. Ventricles: Unremarkable. No ventriculomegaly. Bones/joints: Unremarkable. No acute calvarial fracture. Soft tissues: Right frontal scalp soft tissue defect, likely posttraumatic. Sinuses: Minimal mucosal thickening of the paranasal sinuses. Mastoid air cells: Unremarkable as visualized. IMPRESSION: 1. No acute infarct, hemorrhage, mass or edema. 2. Right frontal scalp soft tissue defect, likely posttraumatic.
[2020-11-24] MEDS ORDERED: DIPH,PERTUS(ACELL)TETVAC-LF 0.5 ML VIAL IM ONE (02:48)
[2020-11-24 02:52] LABS: D-Dimer 0.42 mg/L FEU (<0.60); Prothrombin Time 10.6 sec (9.0-12.0)
[2020-11-24 02:55] LABS: Partial Thromboplastin Time 21.2 sec (22.0-30.0)
--- NOTE | 2020-11-24 02:57 | XR ---
EXAM: XR Chest, 2 Views CLINICAL HISTORY: ITS.REASON XR Reason: syncope TECHNIQUE: Frontal and lateral views of the chest. COMPARISON: Chest x-ray dated 09/18/2018 FINDINGS: Lungs: Unremarkable. Pleural space: Unremarkable. Heart: Unremarkable. Mediastinum: Unremarkable. Bones/joints: Unremarkable. IMPRESSION: Normal chest x-rays.
[2020-11-24] MEDS ORDERED: fentaNYL (PF) 50 MCG/ML 2 ML AMP IVP STA (03:07)
[2020-11-24 04:05] VITALS: BP 120/66; PULSE 80; RESP 18
[2020-11-24 05:09] LABS: Appearance,Urine Clear (Clear); Bacteria,Urine Rare /hpf; Bilirubin,Urine Negative (Negative); Blood,Urine Negative (Negative); Color,Urine Light Yellow; Glucose,Urine (UA) Negative (Negative); Hyaline Casts,Urine 3 /lpf (0-2); Ketones,Urine Negative (Negative); Leukocyte Esterase,Urine Trace (Negative); Mucus,Urine Occasional /hpf; Nitrite,Urine Negative (Negative); PH, Urine 5.5 (5.0-8.0); Protein,Urine Negative (Negative); Specific Gravity,Urine 1.015 (1.001-1.035); Squamous Epithelial Cell,Urine <1 /hpf (0-4); Urobilinogen,Urine <2.0 mg/dL (<2.0); WBC,Urine 6 /hpf (0-5)
== END 2020-11-24 04:12 | disposition home or self-care (01) ==
LOC: EC 01:57
DX: S01.111A Laceration without foreign body of right eyelid and periocular area, initial encounter (principal); S40.211A Abrasion of right shoulder, initial encounter; R55 Syncope and collapse; R51.9 Headache, unspecified; Z23 Encounter for immunization; R11.2 Nausea with vomiting, unspecified; E03.9 Hypothyroidism, unspecified; K21.9 Gastro-esophageal reflux disease without esophagitis; D68.51 Activated protein C resistance; E06.3 Autoimmune thyroiditis; W01.10XA Fall on same level from slipping, tripping and stumbling with subsequent striking against unspecified object, initial encounter; Y92.002 Bathroom of unspecified non-institutional (private) residence as the place of occurrence of the external cause
CPT/HCPCS: 36415; 93005; 85379; 80053; 83735; 84484; 85025; 85610; 85730; 81001; 71046; 70450; 90715; 99285; 12011; 96374; 96361; 90471; J2001; J3010

== ENCOUNTER → 2021-04-23 | Outpatient (CLI) | payer BC ==
--- NOTE | 2021-04-23 18:25 | CT ---
EXAMINATION TYPE: CT abdomen pelvis wo/w con DATE OF EXAM: 04/23/2021 HISTORY: HEMATURIA CT DLP: 913.8mGycm Automated Exposure Control for Dose Reduction was Utilized. CONTRAST: CT scan of the abdomen and pelvis is performed with oral and without and with IV Contrast, patient in jected with 100 mL of Isovue 300. COMPARISON: Renal ultrasound July 14, 2020. FINDINGS: LUNG BASES: Bilateral breast implants are partially imaged. LIVER/GB: No significant abnormality is appreciated. PANCREAS: No significant abnormality is seen. SPLEEN: No significant abnormality is seen. ADRENALS: No significant abnormality is seen. KIDNEYS: Noncontrast images show no renal calculi bilaterally. Postcontrast images show symmetric cor tical medullary uptake and excretion without hydronephrosis seen bilaterally. There is partially exop hytic 3.5 cm thin-walled cyst laterally from the upper pole left kidney series 8 image 24 correspondi ng to prior ultrasound. Bladder shows no suspicious intraluminal mass or calculus. BOWEL: Oral contrast does not reach level of terminal ileum. Normal-appearing appendix seen from base of cecum. No suspicious small or large bowel dilatation is identified. Some scattered colonic divert icula. No CT evidence for acute diverticulitis. UTERUS/ADNEXA: Anteverted uterus projects to left of midline with central metallic IUD. Normal size o varies. Single right-sided pelvic phlebolith axial image 66. LYMPH NODES: No greater than 1cm abdominal or pelvic lymph nodes are appreciated. OSSEOUS STRUCTURES: No significant abnormality is seen. OTHER: No significant additional abnormality is seen. IMPRESSION: 1. Source of hematuria not identified. No acute findings are seen.
== END | disposition home or self-care (01) ==
LOC: RADCTMAIN 14:44
PROVIDERS: ATTEND Family Medicine
DX: R31.9 Hematuria, unspecified (principal)
CPT/HCPCS: 74178; Q9967

== ENCOUNTER → 2022-02-12 | Outpatient (CLI) | payer BC ==
--- NOTE | 2022-02-14 10:27 | MM ---
Reason for Exam: Screening (asymptomatic). Last screening mammogram was performed 12 month(s) ago. Patient History: Menarche at age 12. First Full-Term at age 23. Last menstrual period: 08/04/2016 Risk Values: Maria Antonia 5 year model risk: 0.9%. NCI Lifetime model risk: 9.2%. Prior Study Comparison: 01/31/2020 Bilateral MG screening mammo implant/CAD, [facility]. 02/01/2021 Bilateral MG screening mammo implant/CAD, [facility]. Tissue Density: There are scattered fibroglandular densities. Findings: Analyzed By CAD. Bilateral breast implants are present. There is a circumscribed oval mass within the right breast upper inner quadrant approximately 4.4 cm from the nipple. It is not definitively seen on prior's There is no suspicious group of microcalcifications or mass within the left breast. Overall Assessment: Incomplete: need additional imaging evaluation, BI-RAD 0 Management: Special View Mammogram of the right breast. Right breast upper inner quadrant 4.4 cm from the nipple. Diagnostic Breast Ultrasound of the right breast. Right breast upper inner quadrant 4.4 cm from the nipple. Electronically signed and approved by: Crispin Duque DO
== END | disposition home or self-care (01) ==
LOC: RADMAMWWP 06:47
PROVIDERS: ATTEND Family Medicine
DX: Z12.31 Encounter for screening mammogram for malignant neoplasm of breast (principal)
CPT/HCPCS: 77063; 77067

== ENCOUNTER → 2022-02-20 | Outpatient (CLI) | payer BC ==
--- NOTE | 2022-02-20 14:33 | USB ---
Reason for Exam: Additional evaluation requested from abnormal screening. Patient History: Menarche at age 12. First Full-Term at age 23. Risk Values: Maria Antonia 5 year model risk: 0.9%. NCI Lifetime model risk: 9.2%. Technique: Method: Targeted. Prior Study Comparison: 01/31/2020 Bilateral MG screening mammo implant/CAD, [facility]. 02/01/2021 Bilateral MG screening mammo implant/CAD, [facility]. 02/12/2022 Bilateral MG 3D screen mammo imp/cad., [facility]. Findings: The medial section of the breast of the right breast was scanned. Finding 1: Mass. Laterality: Right. Size 16 x 5 x 16 mm. 3 O'clock Quadrant: Upper inner. 4 cm cm from nipple. Shape: Oval. Elongated cystic lesion with internal echoes measuring 16 x 5 x 16 mm at 3:00 is likely benign. Six-month follow-up advised. Overall Assessment: Probably benign, BI-RAD 3 Management: Diagnostic Breast Ultrasound of the right breast in 6 months. A clinical breast exam by your physician is recommended on an annual basis and results should be correlated with mammographic findings. Electronically signed and approved by: Tung Nava M.D. Radiologis
== END | disposition home or self-care (01) ==
LOC: RADMAMWWP 13:36
PROVIDERS: ATTEND Family Medicine
DX: N60.01 Solitary cyst of right breast (principal)

== ENCOUNTER → 2023-02-27 | Outpatient (CLI) | payer BC ==
--- NOTE | 2023-02-27 16:44 | FL ---
Exam Date: 02/27/2023 11:48 AM. Modified barium swallow for dysphagia. Consistencies administered: Various consistency of barium. Fluoro time: 1 minute 2 seconds No images were sent to PACS. Please see speech pathology report. DAP: Not reported
== END | disposition home or self-care (01) ==
LOC: RADFLMAIN 11:22
PROVIDERS: ATTEND Otolaryngology Facial Plastic Surgery
DX: R13.14 Dysphagia, pharyngoesophageal phase (principal); R59.0 Localized enlarged lymph nodes
CPT/HCPCS: 74230

== ENCOUNTER → 2023-03-17 | Outpatient (CLI) | payer BC ==
--- NOTE | 2023-03-17 15:59 | US ---
EXAMINATION TYPE: US thyroid st tissue head/neck DATE OF EXAM: 03/17/2023 COMPARISON: US thyroid 08/23/2011 CLINICAL INDICATION: Female, 48 years old with history of R59.0 Localized enlarged lymph nodes; pt liang s a left palpable area of the lateral aspect of the thyroid bed GLAND SIZE: Right Lobe: 4.2 x 3.6 x 1.4 cm Overall Parenchyma: diffusely heterogenous Left Lobe: 3.9 x 2.5 x 1.3 cm Overall Parenchyma: diffusely heterogenous Isthmus Thickness: 0.3 cm NODULES RIGHT: # of nodules measured on right: 1 1. 0.6 X 0.4 x 0.5 cm nodule at the mid pole with a calcified component, which is wider than tall, with smooth margins. TR3. Prior size: no previous measurements LEFT: # of nodules measured on left: 1 1. 1.1 X 0.7 x 0.8 cm isoechoic solid nodule at the mid lateral pole, which is wider than tall, wit h smooth margins, without echogenic foci. TR3. This corresponds to the pt's palpable concern. Prior size: no previous measurements ISTHMUS: # of nodules measured in the isthmus: 0 Bilateral neck scanned, no evidence of lymphadenopathy. IMPRESSION: Diffusely heterogenous thyroid gland with bilateral small thyroid nodules with largest on the left me asuring up to 1.1 cm consistent with a TR 3 nodule. 2017 ACR TI-RADS LEVEL: TR-RADS 3 - Mildly Suspicious: Follow if > 1.5 cm, FNA if > 2.5 cm *Highest TI-RADS level nodule reported
== END | disposition home or self-care (01) ==
LOC: RADUSWWP 15:12
PROVIDERS: ATTEND Otolaryngology Facial Plastic Surgery
DX: E04.2 Nontoxic multinodular goiter (principal); R59.0 Localized enlarged lymph nodes
CPT/HCPCS: 76536

== ENCOUNTER → 2024-04-13 | Outpatient (CLI) | payer BC ==
[2024-04-13 16:42] LABS: Estradiol <20.0 pg/mL; Luteinizing Hormone 36.6 mIU/mL
== END | disposition home or self-care (01) ==
LOC: LABWHC1 09:07
PROVIDERS: ATTEND Family Medicine
DX: E06.3 Autoimmune thyroiditis (principal); D51.9 Vitamin B12 deficiency anemia, unspecified; M54.9 Dorsalgia, unspecified; R43.8 Other disturbances of smell and taste
CPT/HCPCS: 36415; 82607; 82670; 82746; 83002; 84144; 84443; 85652; 86038; 86235

== ENCOUNTER 2024-06-22 17:06 | Emergency (ER) | payer BC ==
--- NOTE | 2024-06-22 17:21 | ED ---
Female Urogenital HPI - General Source: patient Mode of arrival: ambulatory Limitations: no limitations - History of Present Illness MD Complaint: vaginal bleeding, pelvic pain <Dylan Gonzalez - Last Filed: 06/22/24 17:19> - General Source: patient, RN notes reviewed <Diane Capps - Last Filed: 06/22/24 20:31> - General Stated complaint: vaginal pain/iud issue Time Seen by Provider: 06/22/24 17:14 - History of Present Illness Initial comments: Quick note: This is a 49-year-old female presenting with pelvic pain (7 out of 10) and vaginal bleeding since IUD placement this morning. Patient states pain comes and goes. Endorses history of IUD that became displaced, moving into pelvic wall. Patient denies use of blood thinners or antiplatelet medication. Denies [id number] medication use. (Dylan Gonzalez) 49-year-old female presenting with pelvic pain x 10 hours status post IUD placement this morning with Dr. Saul. Describes the pain as contractions and intermittent. Also reports some vaginal bleeding since the procedure. Endorses history of IUD that became displaced. Denies blood thinners. (Diane Capps) - Related Data Home Medications Medication Instructions Recorded Confirmed Levothyroxine Sodium [Synthroid] 75 mcg PO DAILY 09/10/16 09/18/18 Multivitamins, Thera [Multivitamin] 1 tab PO DAILY 09/10/1615 Previous Rx's Medication Instructions Recorded Ibuprofen 800 mg PO Q6HR PRN #20 tablet 09/18/18 Magnesium 200 mg PO DAILY #10 tablet 09/18/18 Allergies Allergy/AdvReac Type Severity Reaction Status Date / Time ciprofloxacin [From Cipro] Allergy Itching Verified 06/22/24 17:23 ciprofloxacin HCl Allergy Itching, Verified 06/22/24 17:23 [From Cipro] redness Review of Systems ROS Other: All systems not noted in ROS Statement are negative. <Dylan Gonzalez - Last Filed: 06/22/24 17:19> ROS Other: All systems not noted in ROS Statement are negative. <Diane Capps - Last Filed: 06/22/24 20:31> ROS Statement: Those systems with pertinent positive or pertinent negative responses have been documented in the HPI. Past Medical History Past Medical History: Blood Disorder, GERD/Reflux, Thyroid Disorder Additional Past Medical History / Comment(s): FACTOR V. IUD MISPLACED, CAUSING PAIN OCC. HASHIMOTOS. History of Any Multi-Drug Resistant Organisms: None Reported Past Surgical History: Breast Surgery Additional Past Surgical History / Comment(s): BREAST Implants X2. Past Anesthesia/Blood Transfusion Reactions: Previous Problems w/ Anesthesia, Postoperative Nausea & Vomiting (PONV) Past Psychological History: Anxiety Smoking Status: Never smoker Past Alcohol Use History: Occasional Past Drug Use History: None Reported - Past Family History Sister(s) Family Medical History: Cancer Father Family Medical History: Blood Disorder <Dylan Gonzalez - Last Filed: 06/22/24 17:19> General Exam <Dylan Gonzalez - Last Filed: 06/22/24 17:19> General appearance: alert, in no apparent distress Head exam: Present: atraumatic, normocephalic, normal inspection Respiratory exam: Present: normal lung sounds bilaterally. Absent: respiratory distress, wheezes, rales, rhonchi, stridor Cardiovascular Exam: Present: regular rate, normal rhythm, normal heart sounds. Absent: systolic murmur, diastolic murmur, rubs, gallop, clicks GI/Abdominal exam: Present: soft, normal bowel sounds. Absent: distended, tenderness, guarding, rebound, rigid Neurological exam: Present: alert, oriented X3 Psychiatric exam: Present: normal affect, normal mood Skin exam: Present: warm, dry, intact, normal color. Absent: rash <Diane Capps - Last Filed: 06/22/24 20:31> - General Exam Comments Initial Comments: Visual Physical Exam Vital signs reviewed General: Well-appearing, nontoxic, no acute distress. Head: Normocephalic, atraumatic Eyes: PERRLA, EOMI ENT: Airway patent Chest: Nonlabored breathing Skin: No visual rash, normal skin tone Neuro: Alert and oriented 3 Musculoskeletal: No gross abnormalities (Dylan Gonzalez) Course Vital Signs 06/22/24 17:24 Temperature 97.5 F L Pulse Rate 73 Respiratory 18 Rate Blood Pressure 120/83 O2 Sat by Pulse 97 Oximetry Medical Decision Making <Dylan Gnozalez - Last Filed: 06/22/24 17:19> - Lab Data Result diagrams: 06/22/24 19:02 06/22/24 19:02 <Diane Capps - Last Filed: 06/22/24 20:31> - Medical Decision Making I completed the quick note portion of this chart signed KRISTA Brizuela (Dylan Gonzalez) Was pt. sent in by a medical professional or institution (RICHARD Knight, ASSISTANT OCEANOGRAPHER, urgent care, hospital, or intermediate...) When possible be specific @ -No Did you speak to anyone other than the patient for history (EMS, parent, family, police, friend...)? What history was obtained from this source @ -No Did you review nursing and triage notes (agree or disagree)? Why? @ -I reviewed and agree with nursing and triage notes Were old charts reviewed (outside hosp., previous admission, EMS record, old EKG, old radiological studies, urgent care reports/EKG's, intermediate records)? Report findings @ -No old charts were reviewed Differential Diagnosis (chest pain, altered mental status, abdominal pain women, abdominal pain men, vaginal bleeding, weakness, fever, dyspnea, syncope, headache, dizziness, GI bleed, back pain, seizure, CVA, palpatations, mental health, musculoskeletal)? @ -Differential Abdominal Pain Women: Appendicitis, Cholecystitis, diverticulosis, ischemic bowel, pancreatitis, hepatitis, UTI, gastroenteritis, AAA, incarcerated hernia, bowel obstruction, constipation, inflammatory bowel, hepatitis, peptic ulcer disease, splenic infarction, perforated viscus, vulvitis, ovarian torsion, PID, kidney stone, placenta abruption, this is not meant to be an all-inclusive list EKG interpreted by me (3pts min.). @ -None X-rays interpreted by me (1pt min.). @ -None done CT interpreted by me (1pt min.). @ -None done U/S interpreted by me (1pt. min.). @ -Ultrasound pelvis reveals IUD appearing in lower position than would be expected, left ovary obscured by gas, normal right ovary What testing was considered but not performed or refused? (CT, X-rays, U/S, labs)? Why? @ -Recommended CT abdomen pelvis for further imaging however patient prefers to follow-up with Dr. Saul What meds were considered but not given or refused? Why? @ -Patient declined pain medication Did you discuss the management of the patient with other professionals (professionals i.e. , PA, ASSISTANT OCEANOGRAPHER, lab, RT, psych nurse, social worker masters, brim pouncer, teacher, electrical engineering drafting officer, skilled nursing case manager)? Give summary @ -No Was smoking cessation discussed for >3mins.? @ -No Was critical care preformed (if so, how long)? @ -No Were there social determinants of health that impacted care today? How? (Homelessness, low income, unemployed, alcoholism, drug addiction, transportation, low edu. Level, literacy, decrease access to med. care, long-term, rehab)? @ -No Was there de-escalation of care discussed even if they declined (Discuss DNR or withdrawal of care, Hospice)? DNR status @ -No What co-morbidities impacted this encounter? (DM, HTN, Smoking, COPD, CAD, Cancer, CVA, ARF, Chemo, Hep., AIDS, mental health diagnosis, sleep apnea, mo rbid obesity)? @ -None Was patient admitted / discharged? Hospital course, mention meds given and [place], prescriptions, significant lab abnormalities, going to OR and other pertinent info. @ -Discharged. This is a 49-year-old female presenting with pelvic pain x 10 hours status post IUD placement this morning with Dr. Saul. Vital signs within acceptable limits. Abdomen is soft nontender. Lab work unremarkable, hemoglobin stable at 12.6. Ultrasound pelvis reveals IUD appearing in lower pos ition than would be expected. Results were discussed with patient. Recommended CT abdomen pelvis for further imaging however patient states she prefers to follow-up with Dr. Saul. Strict return precautions discussed with patient and she is agreeable to plan. Case was discussed with my ED attending Dr. Louis. Undiagnosed new problem with uncertain prognosis? @ -No Drug Therapy requiring intensive monitoring for toxicity (Heparin, Nitro, Insulin, Cardizem)? @ -No Were any procedures done? @ -No Diagnosis/symptom? @ -Pelvic pain Acute, or Chronic, or Acute on Chronic? @ -Acute Uncomplicated (without systemic symptoms) or Complicated (systemic symptoms)? @ -Uncomplicated Side effects of treatment? @ -No Exacerbation, Progression, or Severe Exacerbation? @ -No Poses a threat to life or bodily function? How? (Chest pain, USA, MT, pneumonia, PE, COPD, DKA, ARF, appy, cholecystitis, CVA, Diverticulitis, Homicidal, Suicidal, threat to staff... and all critical care pts) @ -Unlikely (Diane Capps) - Lab Data Lab Results 06/22/24 06/22/24 06/22/24 Range/Units 19:02 19:02 19:02 WBC 7.5 (3.8-10.6) k/uL RBC 4.26 (3.80-5.40) m/uL Hgb 12.6 (11.4-16.0) gm/dL Hct 38.9 (34.0-46.0) % MCV 91.3 (80.0-100.0) fL MCH 29.5 (25.0-35.0) pg MCHC 32.4 (31.0-37.0) g/dL RDW 13.5 (11.5-15.5) % Plt Count 310 (150-450) k/uL MPV 6.8 Neutrophils % 60 % Lymphocytes % 33 % Monocytes % 4 % Eosinophils % 1 % Basophils % 0 % Neutrophils # 4.5 (1.3-7.7) k/uL Lymphocytes # 2.5 (1.0-4.8) k/uL Monocytes # 0.3 (0-1.0) k/uL Eosinophils # 0.1 (0-0.7) k/uL Basophils # 0.0 (0-0.2) k/uL PT 10.9 (10.0-12.5) sec INR 1.0 (<1.2) APTT 32.0 H (22.0-30.0) sec Sodium 142 (137-145) mmol/L Potassium 4.0 (3.5-5.1) mmol/L Chloride 108 H (98-107) mmol/L Carbon Dioxide 25 (22-30) mmol/L Anion Gap 9 mmol/L BUN 9 (7-17) mg/dL Creatinine 0.74 (0.52-1.04) mg/dL Est GFR (CKD-EPI)AfAm >90 (>60 ml/min/1.73 sqM) Est GFR (CKD-EPI)NonAf >90 (>60 ml/min/1.73 sqM) Glucose 86 (74-99) mg/dL Calcium 9.2 (8.4-10.2) mg/dL Total Bilirubin 0.3 (0.2-1.3) mg/dL AST 26 (14-36) U/L ALT 18 (4-34) U/L Alkaline Phosphatase 78 (38-126) U/L Total Protein 7.2 (6.3-8.2) g/dL Albumin 4.2 (3.5-5.0) g/dL Disposition <Dylan Gonzalez - Last Filed: 06/22/24 17:19> Is patient prescribed a controlled substance at d/c from ED?: No Time of Disposition: 20:27 <Diane Capps - Last Filed: 06/22/24 20:31> Clinical Impression: Pelvic pain Disposition: HOME SELF-CARE Condition: Stable Additional Instructions: Follow-up with Dr. Saul as discussed. Please return to the Emergency Department if symptoms worsen or any other concerns. Referrals: Leslie Louis DO [Primary Care Provider] - 1-2 days
[2024-06-22 17:26] VITALS: RESP 18
--- NOTE | 2024-06-22 18:55 | US ---
EXAMINATION TYPE: US transvaginal DATE OF EXAM: 06/22/2024 COMPARISON: 12/02/2018 CLINICAL INDICATION: Female, 49 years old with history of Pain/bleeding-IUD placed this morning; Marlee ent states pain and bleeding since IUD (mirena) placement this morning TECHNIQUE: Transvaginal (TV). Transabdominal grayscale sonographic images of the pelvis were acquired. Transvaginal sonographic im ages were medically necessary to better assess the following anatomy: Endometrium Doppler imaging: Color Doppler Images were obtained. Spectral doppler images were obtained. FINDINGS: Date of LMP: No period since IUD 5 years EXAM MEASUREMENTS: Uterus: 5.6 x 2.6 x 3.6 cm Endometrial Stripe: not visualized due to IUD Right Ovary: 2.3 x 0.9 x 1.1cm Left Ovary: Obscured by gas 1. Uterus: Anteverted Appears slightly heterogeneous 2. Endometrium: There is a small amount of fluid surrounding the IUD, with a 0.5 x 0.3 x 0.4cm anech oic area near the fundus. ? IUD slightly low vs normal 3. Right Ovary: wnl as best seen 4. Left Ovary: Obscured by overlying bowel gas Spectral, color and waveform doppler imaging shows good arterial and venous flow within the ovaries ; there is no evidence for ovarian torsion. 5. Bilateral Adnexa: wnl 6. Posterior cul-de-sac: no free fluid seen IMPRESSION: 1. IUD appears in lower position than would be expected. This can be confirmed with CT imaging if cl inically warranted. 2. Left ovary is obscured by bowel gas. 3. Normal-appearing right ovary. [facility], Workstation: [id number], 06/22/2024 6:53 PM
[2024-06-22 19:06] LABS: Basophils % (A) 0 %; Eosinophils # (A) 0.1 k/uL (0-0.7); Eosinophils % (A) 1 %; HCT 38.9 % (34.0-46.0); HGB 12.6 gm/dL (11.4-16.0); Lymphocytes # (A) 2.5 k/uL (1.0-4.8); Lymphocytes % (A) 33 %; MCH 29.5 pg (25.0-35.0); MCHC 32.4 g/dL (31.0-37.0); MCV 91.3 fL (80.0-100.0); Mean Platelet Volume 6.8; Monocytes # (A) 0.3 k/uL (0-1.0); Monocytes % (A) 4 %; Neutrophils # (A) 4.5 k/uL (1.3-7.7); Neutrophils % (A) 60 %; Platelet Count 310 k/uL (150-450); RBC 4.26 m/uL (3.80-5.40); RDW 13.5 % (11.5-15.5); WBC 7.5 k/uL (3.8-10.6)
[2024-06-22 19:17] LABS: Prothrombin Time 10.9 sec (10.0-12.5)
[2024-06-22 19:45] LABS: ALT 18 U/L (4-34); AST 26 U/L (14-36); African American GFR (CKD) >90 (>60 ml/min/1.73 sqM); Albumin 4.2 g/dL (3.5-5.0); Alkaline Phosphatase 78 U/L (38-126); Anion Gap 9 mmol/L; Blood Urea Nitrogen 9 mg/dL (7-17); Calcium 9.2 mg/dL (8.4-10.2); Carbon Dioxide 25 mmol/L (22-30); Chloride 108 mmol/L (98-107); Glucose 86 mg/dL (74-99); Non-African American GFR(CKD) >90 (>60 ml/min/1.73 sqM); Sodium 142 mmol/L (137-145); Total Bilirubin 0.3 mg/dL (0.2-1.3); Total Protein 7.2 g/dL (6.3-8.2)
[2024-06-22 20:35] VITALS: BP 119/80; PULSE 69; TEMP 98
== END 2024-06-22 20:39 | disposition home or self-care (01) ==
LOC: EC 17:06
DX: R10.2 Pelvic and perineal pain (principal); Z88.1 Allergy status to other antibiotic agents
CPT/HCPCS: 36415; 76830; 80053; 85025; 85610; 85730; 93976; 99284

== ENCOUNTER → 2024-09-03 | Outpatient (CLI) | payer BC ==
--- NOTE | 2024-09-03 08:47 | MM ---
Reason for Exam: Hx of breast augmentation, asymptomatic. Last mammogram was performed 1 year(s) and 6 month(s) ago. Patient History: Menarche at age 12. First Full-Term at age 23. Risk Values: Maria Antonia 5 year model risk: 1.0%. NCI Lifetime model risk: 8.9%. Prior Study Comparison: 02/01/2021 Bilateral MG screening mammo implant/CAD, [facility]. 02/12/2022 Bilateral MG 3D screen mammo imp/cad., [facility]. 02/21/2023 Bilateral MG 3D screen mammo imp/cad., [facility]. Tissue Density: The breasts are almost entirely fatty. Findings: Analyzed By CAD. Bilateral breast implants appear intact. Right breast: There is no suspicious group of microcalcifications or new suspicious mass. Left breast: There is no suspicious group of microcalcifications or new suspicious mass. Overall Assessment: Negative, BI-RAD 1 Management: Screening Mammogram of both breasts in [address] [facility] will attempt to contact patient to return for supplemental views and ultrasound if indicated. Patient should continue monthly self-breast exams. A clinical breast exam by your physician is recommended on an annual basis. This exam should not preclude additional follow-up of suspicious palpable abnormalities. Note on Maria Antonia scores and lifetime risk: 1. A Maria Antonia score greater than 3% is considered moderate risk. If this is the case, consider specialist referral to assess eligibility for a risk reducing agent. 2. If overall lifetime risk for the development of breast cancer is 20% or higher, the patient may qualify for future screening with alternating mammogram and breast MRI. [facility], , 09/03/2024 8:44 AM. Electronically signed and approved by: Crispin Duque DO
== END | disposition home or self-care (01) ==
LOC: RADMAMWWP 07:34
PROVIDERS: ATTEND Family Medicine
DX: Z12.31 Encounter for screening mammogram for malignant neoplasm of breast (principal); R92.313 Mammographic fatty tissue density, bilateral breasts; Z98.82 Breast implant status
CPT/HCPCS: 77063; 77067

== ENCOUNTER 2024-10-27 10:11 | Day surgery (SDC) | payer BC ==
[~2024-10-27 10:11] MED LIST changes: -DEXAMETHASONE SOD PHOSPHATE 10 MG/ML 1 ML VIAL IV ONE; -GLYCOPYRROLATE 0.2 MG/ML 2 ML VIAL ONE; -KETOROLAC 30 MG/ML 1 ML VIAL ONE; -LACTATED RINGERS 1,000 ML IV ONE; -LACTATED RINGERS 1,000 ML IV SCH; +LIDOCAINE 1% (10MG/ML) FOR IV START INTRADERMA PRN; -LIDOCAINE 1% 20 ML VIAL (10MG/ML) FOR IV START INTRADERMA PRN; -LIDOCAINE 1% INJ 10MG/ML (20 ML MDV) ONE; -MIDAZOLAM 2 MG/2 ML VIAL ONE; -NEOSTIGMINE 1 MG/ML 10 ML VIAL ONE; -ONDANSETRON 4 MG/2 ML VIAL IVP ONE; -PROPOFOL 10 MG/ML 20 ML VIAL IV ONE; -Pre Op ABX Message 1 EACH MISC MISCELLANE ONE; -ROCURONIUM BROMIDE 10 MG/ML 10 ML VIAL IV ONE; -SCOPOLAMINE 1.5MG/72HR PATCH TRANSDERM ONE; -SUCCINYLCHOLINE CHLORIDE 100 MG/5 ML SYR IV ONE
[2024-10-27 11:06] LABS: Glucose,Whole Blood 93 mg/dL (70-110)
[2024-10-27 11:10] VITALS: TEMP 98
[2024-10-27] MEDS: LACTATED RINGERS 1,000 ML IV ONE (11:11)
[2024-10-27] MEDS: LACTATED RINGERS 1,000 ML IV SCH (11:13)
[2024-10-27] MEDS: ONDANSETRON 4 MG/2 ML VIAL IVP STA (11:14)
[2024-10-27] MEDS ORDERED: LIDOCAINE 1% INJ 10MG/ML (20 ML MDV) ONE (11:34)
[2024-10-27] MEDS ORDERED: PROPOFOL 10 MG/ML 20 ML VIAL IV ONE (11:34)
--- NOTE | 2024-10-27 11:43 | P.PCN ---
Date of Procedure: 10/27/24 Procedure(s) Performed: BRIEF HISTORY: Patient is a 49-year-old, pleasant, white female scheduled for upper endoscopy as a part of evaluation of lungs and history of GERD. She is currently on lansoprazole 30 mg twice daily and still remains symptomatic with severe heartburn on a daily basis.. PROCEDURE PERFORMED: Esophagogastroduodenoscopy with biopsy. PREOPERATIVE DIAGNOSIS: Longstanding history of GERD. IV sedation per anesthesia. PROCEDURE: After informed consent was obtained, the patient was brought into the endoscopy unit. IV sedation was administered by Anesthesia under continuous monitoring. Initially the Olympus GIF-140 video endoscope was inserted into the mouth. Esophagus intubated without any difficulty. It was gradually advanced into the stomach and duodenum and carefully examined. The bulb and the second part of the duodenum appeared normal. The scope at this time was withdrawn to the stomach, adequately insufflated with air, and upon careful examination, mucosa of the antrum, had erosive gastritis and biopsies were done from this area. Body, cardia and the fundus appeared normal. The scope was then withdrawn into the esophagus. Small hiatal hernia noted. The GE junction was located at 34 cm from the incisors. There were 2 tongues of Lopez's appearing mucosa e xtending from 34 to 35 cm from the incisors and biopsies were done from this area. The rest of the esophagus appeared normal. There were no erosions or ulcerations seen and the patient tolerated the procedure well. IMPRESSION: 1. Mild antral erosive gastritis. 2. Small hiatal hernia 3. 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 She was advised to follow-up with the biopsy results.. Intermittent I suggested that she stop the lansoprazole and will start her on pantoprazole 40 mg twice daily and follow antireflux measures. Follow-up in the office in 3 to 4 weeks.
[2024-10-27 12:14] VITALS: BP 120/82; PULSE 58; RESP 16
== END 2024-10-27 12:36 | disposition home or self-care (01) ==
LOC: ORWHC2ENDO 10:11
PROVIDERS: ATTEND Internal Medicine Gastroenterology
DX: K29.50 Unspecified chronic gastritis without bleeding (principal); K21.00 Gastro-esophageal reflux disease with esophagitis, without bleeding; K44.9 Diaphragmatic hernia without obstruction or gangrene; E07.9 Disorder of thyroid, unspecified; F41.9 Anxiety disorder, unspecified; D68.51 Activated protein C resistance; Z88.1 Allergy status to other antibiotic agents; Z79.890 Hormone replacement therapy; Z79.899 Other long term (current) drug therapy
CPT/HCPCS: 81025; 88305; 43239; J2405; J2003; J2704